=== PATIENT | male | born 1960 | race Caucasian/White ===

== ENCOUNTER 2023-11-08 06:03 | Day surgery (SDC) | payer OTHER ==
[~2023-11-08] VITALS: Ht 188 cm; Wt 124.1 kg
[~2023-11-08 06:03] MED LIST: CIDA500T2 PO; ECOT81TA5 PO; LISI20TA35 PO; METO1TAB7 PO; PHENYLEPHRINE 10% OPHTH SOL 5ML OD PRN; PRAV20TA2 PO; VITA100093 PO
[2023-11-08] MEDS: OFLOXACIN 0.3 % (OCUFLOX) OPTH SOL 5ML OD ONE (06:55)
[2023-11-08] MEDS: LIDOCAINE 3.5 % 1ML OPHTH TOPICAL GEL OU ONE (06:55)
[2023-11-08] MEDS: TROPICAMIDE 1% OPHTH SOLN 15ML OD SCH (06:56)
[2023-11-08] MEDS: PHENYLEPHRINE 2.5% OPHTH SOL 2ML OD SCH (06:56)
[2023-11-08] MEDS: ATROPINE SULFATE 1% OPHTH SOLN 2ML BTL OD SCH (06:56)
[2023-11-08] MEDS ORDERED: fentaNYL 100 MCG/2 ML INJECTION As Ordered ONE (07:15)
[2023-11-08] MEDS: LIDOCAINE 1% SDV 5ML VIAL As Ordered ONE (08:09)
[2023-11-08] MEDS: BSS IRRIG/VANCO(10MG)/TOBRA(5MG)/EPINEPH(1:1000-0.5CC)500ML BAG-ORONLY As Ordered ONE (08:09)
[2023-11-08] MEDS: CEFUROXIME 1MG/0.1ML INTRACAMERAL INJ As Ordered ONE (08:09)
[2023-11-08 08:25] VITALS: BP 147/86; TEMP 98.1; O2SAT 100
== END 2023-11-08 08:51 | disposition home or self-care (01) ==
LOC: M SDC 06:03 → EDUNIT# 12:05
PROVIDERS: ATTEND Ophthalmology
DX: H25.11 Age-related nuclear cataract, right eye (principal); I10 Essential (primary) hypertension; E78.5 Hyperlipidemia, unspecified; G47.33 Obstructive sleep apnea (adult) (pediatric); Z79.82 Long term (current) use of aspirin; Z79.899 Other long term (current) drug therapy; F17.220 Nicotine dependence, chewing tobacco, uncomplicated
CPT/HCPCS: 66984; J0697; J3010; V2632

== ENCOUNTER 2023-11-15 10:08 | Day surgery (SDC) | payer OTHER ==
[~2023-11-15] VITALS: Ht 188 cm; Wt 125.2 kg
[~2023-11-15 10:08] MED LIST changes: -PHENYLEPHRINE 10% OPHTH SOL 5ML OD PRN; +PHENYLEPHRINE 10% OPHTH SOL 5ML OS PRN
[2023-11-15] MEDS ORDERED: MIDAZOLAM INJ 2MG/2ML VIAL As Ordered ONE (11:16)
[2023-11-15] MEDS ORDERED: fentaNYL 100 MCG/2 ML INJECTION As Ordered ONE (11:16)
[2023-11-15] MEDS: TROPICAMIDE 1% OPHTH SOLN 15ML OS SCH (11:58)
[2023-11-15] MEDS: LIDOCAINE 3.5 % 1ML OPHTH TOPICAL GEL OU ONE (11:58)
[2023-11-15] MEDS: PHENYLEPHRINE 2.5% OPHTH SOL 2ML OS SCH (11:58)
[2023-11-15] MEDS: OFLOXACIN 0.3 % (OCUFLOX) OPTH SOL 5ML OS ONE (11:58)
[2023-11-15] MEDS: ATROPINE SULFATE 1% OPHTH SOLN 2ML BTL OS SCH (11:58)
[2023-11-15] MEDS: LIDOCAINE 1% SDV 5ML VIAL As Ordered ONE (12:39)
[2023-11-15] MEDS: BSS IRRIG/VANCO(10MG)/TOBRA(5MG)/EPINEPH(1:1000-0.5CC)500ML BAG-ORONLY As Ordered ONE (12:39)
[2023-11-15] MEDS: CEFUROXIME 1MG/0.1ML INTRACAMERAL INJ As Ordered ONE (12:39)
[2023-11-15 12:51] VITALS: BP 157/99; TEMP 97.6; O2SAT 96
== END 2023-11-15 13:12 | disposition home or self-care (01) ==
LOC: M SDC 10:08
PROVIDERS: ATTEND Ophthalmology
DX: H25.12 Age-related nuclear cataract, left eye (principal); I10 Essential (primary) hypertension; E78.00 Pure hypercholesterolemia, unspecified; G47.30 Sleep apnea, unspecified; Z79.899 Other long term (current) drug therapy; Z79.82 Long term (current) use of aspirin; F17.220 Nicotine dependence, chewing tobacco, uncomplicated; Z90.49 Acquired absence of other specified parts of digestive tract
CPT/HCPCS: 66984; J0697; J2250; J3010; V2632